=== PATIENT | male | born 1985 | race Two or more races ===

== ENCOUNTER 2018-09-29 16:24 | Emergency (ER) | payer OTHER, MEDICAID ==
[~2018-09-29] VITALS: Ht 188 cm; Wt 100.0 kg
[2018-09-29 18:58] VITALS: BP 132/81
== END 2018-09-29 18:59 | disposition home or self-care (01) ==
LOC: ER 16:24
DX: S90.121A Contusion of right lesser toe(s) without damage to nail, initial encounter (principal); W51.XXXA Accidental striking against or bumped into by another person, initial encounter; Y93.89 Activity, other specified; Y92.89 Other specified places as the place of occurrence of the external cause; Y99.8 Other external cause status
CPT/HCPCS: 73660; 99283

== ENCOUNTER 2019-11-20 19:55 | Emergency (ER) | payer BC, MEDICAID, OTHER ==
[~2019-11-20] VITALS: Ht 175.3 cm; Wt 104.5 kg
[2019-11-20] MEDS ORDERED: HYDROcodone/acetaminophen 10/325mg tab PO ONE (20:05)
[2019-11-20] MEDS ORDERED: ketorolac trometh. 30mg/ml inj. IM ONE (20:05)
[2019-11-20] MEDS ORDERED: orphenadrine citrate 60mg/2ml inj. IM ONE (20:05)
[2019-11-20 20:28] LABS: CLARITY,URINE CLEAR (Clear); COLOR,URINE YELLOW (Yellow); GLUCOSE, URINE NEGATIVE (Neg); KETONES,URINE NEGATIVE (Neg); LEUKOCYTE ESTERASE ,URINE NEGATIVE (Neg); NITRITES, URINE NEGATIVE (Neg); OCCULT BLOOD,URINE SMALL (Neg); PROTEIN,URINE 100 mg/dl (Neg); UROBILINOGEN,URINE 0.2 E.U/dL (0.2-1.0)
[2019-11-20 20:34] LABS: UA COLLECTION TYPE URINAL
[2019-11-20 20:35] LABS: BACTERIA,URINE NONE SEEN /HPF (Neg); RBC,URINE 0-2 /HPF (0-2); SQUAMOUS EPITHELIAL CELL,UR FEW /LPF (FEW); WBC,URINE NONE SEEN /HPF (0-4)
[2019-11-20] MEDS ORDERED: CYCL-1 PO (20:50)
[2019-11-20 20:55] VITALS: BP 153/88
== END 2019-11-20 20:57 | disposition home or self-care (01) ==
LOC: ER 19:56
DX: M54.6 Pain in thoracic spine (principal); G89.29 Other chronic pain
CPT/HCPCS: 81001; 96372; 99284; J1885; J2360

== ENCOUNTER 2019-11-23 11:57 | Emergency (ER) | payer BC ==
[~2019-11-23] VITALS: Ht 175.3 cm; Wt 104.5 kg
[~2019-11-23 11:57] MED LIST: CYCL-1 PO
[2019-11-23] MEDS ORDERED: ketorolac trometh. 30mg/ml inj. IV ONE (12:05)
[2019-11-23] MEDS ORDERED: normal saline 1000ML IV soln IVB ONE (12:05)
[2019-11-23 12:30] LABS: BASOPHILS # (AUTO) 0.1 X10'3 (0-0.2); BASOPHILS % (AUTO) 0.8 % (0-1); EOSINOPHILS # (AUTO) 0.1 X10'3 (0-0.9); EOSINOPHILS % (AUTO) 1.1 % (0-6); HEMATOCRIT 48.2 % (42.0-52.0); HEMOGLOBIN 16.5 g/dl (14.0-17.9); LYMPHOCYTES # (AUTO) 1.8 X10'3 (1.1-4.8); LYMPHOCYTES % (AUTO) 16.6 % (21-51); MEAN CORPUSCULAR HEMOGLOBIN 31.3 PG (27.0-31.0); MEAN CORPUSCULAR HGB CONC 34.2 g/dL (33.0-36.5); MEAN CORPUSCULAR VOLUME 91.7 FL (78-98); MEAN PLATELET VOLUME 6.7 FL (7.4-10.4); MONOCYTES % (AUTO) 9.9 % (2-12); NEUTROPHILS # (AUTO) 7.5 X10'3 (1.8-7.7); NEUTROPHILS % (AUTO) 71.6 % (42-75); PLATELET COUNT 287 X10'3 (140-440); RED BLOOD COUNT 5.26 X10'6 (4.70-6.10); RED CELL DISTRIBUTION WIDTH 13.6 % (11.5-14.5); WHITE BLOOD COUNT 10.5 X10'3 (4.5-11.0)
[2019-11-23 12:44] LABS: ALANINE AMINOTRANSFERASE 74 U/L (12-78); ALKALINE PHOSPHATASE 82 IU/L (46-116); ANION GAP 9 (8-16); ASPARTATE AMINO TRANSFERASE 40 U/L (10-37); BILIRUBIN,TOTAL 0.4 MG/DL (0.1-1.0); BLOOD UREA NITROGEN 22 MG/DL (7-18); BUN/CREATININE RATIO 17.5 (5.4-32.0); CALCIUM 8.8 MG/DL (8.5-10.1); CHLORIDE 105 MMOL/L (99-107); CREATININE 1.26 MG/DL (0.60-1.10); GLUCOSE 85 MG/DL (70-104); POTASSIUM 3.9 MMOL/L (3.5-5.1); SODIUM 140 MMOL/L (135-145); TOTAL CARBON DIOXIDE 26.4 MMOL/L (24-32); TOTAL PROTEIN 8.1 G/DL (6.4-8.2); eGFR 67 ML/MIN
[2019-11-23 12:55] LABS: CLARITY,URINE CLEAR (Clear); COLOR,URINE STRAW (Yellow); GLUCOSE, URINE NEGATIVE (Neg); KETONES,URINE NEGATIVE (Neg); LEUKOCYTE ESTERASE ,URINE NEGATIVE (Neg); NITRITES, URINE NEGATIVE (Neg); OCCULT BLOOD,URINE SMALL (Neg); PROTEIN,URINE NEGATIVE (Neg); UA COLLECTION TYPE CLN CATCH MIDSTREAM; UROBILINOGEN,URINE 0.2 E.U/dL (0.2-1.0)
[2019-11-23] MEDS: morphine 4 MG/ML inj SYRINge IV PRN ×2 (13:00→14:03)
[2019-11-23 13:01] LABS: MUCUS STRANDS FEW /LPF (Neg); SQUAMOUS EPITHELIAL CELL,UR FEW /LPF (FEW)
[2019-11-23 13:02] LABS: BACTERIA,URINE FEW /HPF (Neg); RBC,URINE 0-2 /HPF (0-2); WBC,URINE 0-4 /HPF (0-4)
--- NOTE | 2019-11-23 14:06 | NUR ---
patitracyns pain still 04/02, gave another does of morphine and has one bag of fluids left to get, will continue to monitor
[2019-11-23] MEDS ORDERED: HYDROcodone/acetaminophen 5mg/325mg tablet PO ONE (15:10)
[2019-11-23 15:19] VITALS: BP 127/75
== END 2019-11-23 15:37 | disposition home or self-care (01) ==
LOC: ER 11:57
DX: G89.29 Other chronic pain (principal); M54.5 Low back pain; R10.32 Left lower quadrant pain; R30.9 Painful micturition, unspecified
CPT/HCPCS: 36415; 74176; 80053; 81001; 85025; 96374; 96375; 96376; 99284; J1885; J2270; J7030